=== PATIENT | male | born 1940 | race American Indian/Alaskan Native ===

== ENCOUNTER 2022-07-27 09:25 | Observation (INO) | payer MEDICARE ==
[2022-07-22 10:53] LABS: Hematocrit 32.5 % (35.5-45.6); Hemoglobin 10.5 gm/dl (11.8-15.2); Mean Corpuscular HGB Conc 32 % (32-34); Mean Corpuscular Volume 83 fl (84-94); Platelet Count 423 K/mm3 (140-440); Red Blood Count 3.94 M/mm3 (3.65-5.03); Red Cell Distribution Width 15.7 % (13.2-15.2)
[2022-07-22 11:06] LABS: Albumin 4.1 g/dL (3.9-5); Calcium 9.7 mg/dL (8.4-10.2)
[2022-07-27] MEDS ORDERED: LACTATED RINGERS 1,000 ML ONE (09:47)
[2022-07-27] MEDS ORDERED: ONDANSETRON 4 MG/2 ML INJ IV PRN ×2 (10:16→14:58)
[2022-07-27] MEDS ORDERED: HYDROmorphone 0.5 MG/0.5 ML INJ IV PRN (10:16)
--- NOTE | 2022-07-27 10:17 | Anesthesia Day of Surgery ---
Anesthesia Day of Surgery - Day of Surgery Patient Examined: Yes Patient H&P Reviewed: Yes Patient is NPO: Yes Beta Blockers: Yes Cardiac Clearance: Yes (Notes reviewed)
--- NOTE | 2022-07-27 10:19 | Anesthesia Consultation ---
Anesthesia Consult and Med Hx Date of service: 07/27/22 - Airway Anesthetic Teeth Evaluation: Good (Worn teeth), Partials (Upper) ROM Head & Neck: Adequate Mental/Hyoid Distance: Adequate Mallampati Class: Class II Intubation Access Assessment: Good - Pre-Operative Health Status ASA Pre-Surgery Classification: ASA3 Proposed Anesthetic Plan: General - Pulmonary Hx Smoking: No Hx Respiratory Symptoms: No (+2FS; pt walks two miles qd) Hx Sleep Apnea: No - Cardiovascular System Hx Hypertension: Yes (Cardiac records reviewed) Hx Cardia Arrhythmia: Yes (AFib) Hx Pacemaker: Yes Hx Peripheral Vascular Disease: Yes - Central Nervous System CVA: Yes Hx Psychiatric Problems: No - Gastrointestinal Hx Gastroesophageal Reflux Disease: Yes - Endocrine Hx Renal Disease: Yes (CRI) Hx Non-Insulin Dependent Diabetes: Yes - Hematic Hx Sickle Cell Disease: No - Other Systems Hx Cancer: Yes Hx Obesity: Yes
[2022-07-27] MEDS ORDERED: LACTATED RINGERS 1,000 ML IV SCH (10:30)
[2022-07-27] MEDS ORDERED: ceFAZolin/STERILE WATER 2 GM/20 ML SYRINGE IV NR (10:30)
[2022-07-27] MEDS ORDERED: MIDAZOLAM 2 MG/2 ML INJ IV NR (11:00)
[2022-07-27] MEDS ORDERED: ceFAZolin/Water 2 GM/20 ML 2 GM/20 ML SYRINGE IV ONE (11:51)
[2022-07-27] MEDS ORDERED: HYDROmorphone 0.5 MG/0.5 ML INJ ONE (12:41)
[2022-07-27] MEDS ORDERED: ePHEDrine SULFATE 50 MG/1 ML INJ ONE ×3 (12:41→14:33)
[2022-07-27] MEDS ORDERED: propofoL 200 MG/20 ML VIAL IV ONE (12:41)
[2022-07-27] MEDS ORDERED: fentaNYL 100 MCG/2 ML INJ ONE ×2 (14:22→14:39)
--- NOTE | 2022-07-27 14:57 | Post Operative Note ---
Pre-op diagnosis: ponce cap necrosis Post-op diagnosis: same Findings: necrotic tissue Procedure: cysto turp Anesthesia: GETA Surgeon: GALO JOHNSON Estimated blood loss: minimal Pathology: list (prostate) Specimen disposition: to lab Condition: stable Disposition: PACU
[2022-07-27] MEDS ORDERED: oxyCODONE /ACETAMINOPHEN 5-325MG TAB PO PRN (14:58)
[2022-07-27] MEDS ORDERED: NALOXONE 0.4 MG/1 ML INJ IV PRN (14:58)
[2022-07-27] MEDS ORDERED: ACETAMINOPHEN 325 MG TAB PO PRN (14:58)
[2022-07-27] MEDS ORDERED: SODIUM CHLORIDE 0.9% IRRIG SOLN 2000 ML IR SCH (15:00)
[2022-07-27] MEDS ORDERED: ZOLPIDEM 5 MG TAB PO PRN (15:01)
[2022-07-27] MEDS ORDERED: IOHEXOL 300 MG/ML 100ML IR ONE (15:19)
[2022-07-27] MEDS ORDERED: SODIUM CHLORIDE 0.9% IRRIG SOLN 3000 ML IR ONE (15:19)
[2022-07-27] MEDS: HYDROmorphone 0.5 MG/0.5 ML INJ IV PRN ×2 (15:27→15:46)
--- NOTE | 2022-07-27 15:27 | Post Anesthesia Evaluation ---
- Post Anesthesia Evaluation Patient Participated: Yes Airway Patent: Yes Stable Respiratory Function: Yes Nausea/Vomiting: No Temp > 96.8F: Yes Pain Manageable: Yes Adequeate Hydration: Yes Anesthesia Complications: No Block Receding Appropriately: Not Applicable Patient on Ventilator: No
[2022-07-27] MEDS: D5W/0.45% NACL/KCL 20 MEQ 20 MEQ/1,000 ML BAG IV SCH (18:25)
[2022-07-27] MEDS: ceFAZolin/NS 1 GM/50 ML 1 GM/50 ML BAG IV SCH ×2 (18:54→21:59)
--- NOTE | 2022-07-27 21:12 | Operative Report ---
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 PROCEDURES: Cystoscopy, transurethral resection of prostate and necrotic tissue. SURGEON: Dr. Bk Muniz. ANESTHESIA: General. FINDINGS: This is a gentleman who has had previous TURP years ago, radiation with necrosis in the center of the prostate, he could barely urinate. He now presents for treatment. DESCRIPTION OF PROCEDURE: The patient was brought to the operating room and placed on the operating table. Following induction of anesthesia, placed in lithotomy position, prepped and draped in usual sterile fashion. We could barely get into the bladder. Once we got in there, we pulled the scope back. We could see there was yellowish necrotic tissue with what appears to be a little stones around it. Resectoscope was placed and this area was all resected. It was wide open at the conclusion of procedure. We did not have to resect the rest of the cavity. The orifices were very close to the bladder neck. There was some inflammation around them, but we did not disturb them and did not need to do a retrograde. He was 3+ trabeculated. The patient tolerated the procedure well. No significant complication, less than 10 mL blood loss. A catheter was placed in good position in bladder. We could see the bladder was slightly a Loraine tree shape with an open prostatic urethra, filled with contrast, brought to recovery in stable condition. Meyers drip was clear. He will be discharged in the morning. TID: [id number] RECEIPT: [id number] ADY/GLORIA
--- NOTE | 2022-07-27 22:22 | XRay Report ---
Pelvis one view INDICATION: QRP/cysto FINDINGS: Single image of the pelvis was obtained and shows a Díaz catheter in the urinary bladder w ith the balloon inflated. There is contrast in the urinary bladder. There is some contrast noted in t he prostatic portion of the urethra suggesting possible prior TURP. Penile implant is noted. Signer Name: Ry Cheek MD Signed: 07/27/2022 10:17 PM Workstation Name: [id number]
[2022-07-28] MEDS: D5W/0.45% NACL/KCL 20 MEQ 20 MEQ/1,000 ML BAG IV SCH (03:14)
[2022-07-28] MEDS ORDERED: ceFAZolin/NS 1 GM/50 ML 1 GM/50 ML BAG IV SCH (06:00)
[2022-07-28 08:40] VITALS: BP 116/65
--- NOTE | 2022-07-28 12:05 | Discharge Summary ---
Short Stay Discharge Plan Activity: other (no straining ) Weight Bearing Status: Full Weight Bearing Diet: low fat, low cholesterol, low salt Special Instructions: other (inc fluids ) Follow up with: BLANCA MUNGUIA [Other] - 7 Days GALO JOHNSON MD [Staff Physician] - 14 Days
--- NOTE | 2022-07-28 12:06 | Progress Note ---
Assessment and Plan urine clear cath out home today has scripts Subjective Date of service: 07/28/22 Principal diagnosis: ponce cap Objective - Constitutional Vitals: Vital Signs - 12hr 07/28/22 07/28/22 07/28/22 03:00 03:28 07:56 Temperature 98.5 F 98.2 F Pulse Rate 82 74 Respiratory 20 18 18 Rate Blood Pressure 126/62 116/65 O2 Sat by Pulse 92 96 93 Oximetry General appearance: Present: well-nourished - Respiratory Respiratory effort: normal Extremities: no ischemia - Gastrointestinal General gastrointestinal: Present: soft, non-tender - Labs CBC & Chem 7: 07/22/22 06:00 07/22/22 06:00 Labs: Abnormal lab results 07/27/22 07/27/22 07/28/22 Range/Units 15:39 20:36 07:53 POC Glucose 130 H 215 H 151 H (70-105) mg/dL Medications & Allergies - Medications Allergies/Adverse Reactions: Allergies celecoxib [From Celebrex] Allergy (Verified 07/18/22 17:47) Swelling Home Medications: Home Medications Medication Instructions Recorded Confirmed Last Taken Type AtorvaSTATin [Lipitor] 40 mg PO QHS 07/22/22 07/27/22 07/26/22 20:00 History Flecainide [Tambocor] 100 mg PO Q12H 07/22/22 07/27/22 07/27/22 06:00 History Metoprolol [Lopressor] 25 mg PO DAILY 07/22/22 07/27/22 07/27/22 06:00 History Omeprazole Magnesium [PriLOSEC Otc] 20 mg PO QDAY 07/22/22 07/27/22 07/27/22 06:00 History Oxybutynin [Ditropan] 5 mg PO DAILY 07/22/22 07/22/22 Unknown History Quinapril HCl 40 mg PO DAILY 07/22/22 07/27/22 07/27/22 06:00 History Rivaroxaban [Xarelto] 20 mg PO QDAY 07/22/22 07/27/22 07/24/22 09:00 History amLODIPine [Norvasc] 10 mg PO DAILY 07/22/22 07/27/22 07/27/22 06:00 History metFORMIN [Glucophage] 500 mg PO BID 09/01/1107/27/22 07/26/22 17:00 History Active Medications: Generic Name Dose Route Start Last Admin Trade Name Freq PRN Reason Stop Dose Admin Acetaminophen 650 mg 07/27/22 14:58 Acetaminophen 325 Mg Tab PO Q4H PRN Pain MILD(1-3)/Fever >100.5/ALONSO Potassium Chloride/Dextrose/Sod Cl 20 meq in 1,000 mls @ 125 mls/hr 07/27/22 15:00 07/28/22 03:14 D5w/0.45% Nacl/Kcl 20 Meq IV 125 mls/hr DIRECT FLORY Administration Naloxone HCl 0.1 mg 07/27/22 14:58 Naloxone 0.4 Mg/1 Ml Inj IV Q2MIN PRN Res Rate </= 8 or 02 SAT < 92% Ondansetron HCl 4 mg 07/27/22 14:58 Ondansetron 4 Mg/2 Ml Inj IV Q8H PRN Nausea And Vomiting Oxycodone/Acetaminophen 2 tab 07/27/22 14:58 07/28/22 09:11 Oxycodone /Acetaminophen 5-325mg Tab PO 2 tab Q6H PRN Administration Pain, Moderate (4-6) Sodium Chloride 2,000 ml 07/27/22 15:00 Sodium Chloride 0.9% Irrig Soln 2000 Ml IR DIRECT FLORY Zolpidem Tartrate 5 mg 07/27/22 15:01 Zolpidem 5 Mg Tab PO QHS PRN Sleep
== END 2022-07-28 15:27 | disposition home or self-care (01) ==
LOC: OR 09:25 → 3A 14:58 → 4A 16:58
PROVIDERS: ADMIT Urology; ATTEND Urology
DX: C61 Malignant neoplasm of prostate (principal); Z20.822 Contact with and (suspected) exposure to COVID-19; N49.2 Inflammatory disorders of scrotum; N52.01 Erectile dysfunction due to arterial insufficiency; R30.0 Dysuria; Z79.84 Long term (current) use of oral hypoglycemic drugs; Z79.899 Other long term (current) drug therapy
CPT/HCPCS: 36415; 52601; 74018; 80053; 82962; 85027; 86850; 86870; 86900; 86901; 88305; 96365; 96366; G0378; J0690; J1170; J2250; J2704; J3010; J3480; J3490; J7120; U0003; G0379